=== PATIENT | female | born 1965 | race Caucasian/White ===

== ENCOUNTER 2020-07-23 11:43 | Outpatient (CLI) | payer BC, SELFPAY ==
--- NOTE | ~2020-07-23 | MM_ITS ---
EXAMINATION: MM screening [facility] BI w nilson HISTORY: Screening mammogram TECHNIQUE: Craniocaudal and mediolateral oblique 3-D tomosynthesis images were obtained and synthetic 2-D images were generated. CAD analysis was submitted and interpreted. COMPARISON: 12/13/2018, 10/20/2017, 09/09/2016 BREAST PARENCHYMAL COMPOSITION: There are scattered areas of fibroglandular density. FINDINGS: There is no evidence of suspicious mass, calcification, or architectural distortion to sugg est malignancy in either breast. There has been no suspicious interval change. IMPRESSION: 1. No mammographic evidence of malignancy. 2. Recommend routine screening mammography in one year. BI-RADS Category 1: Negative Reviewed, dictated and finalized at location A. T [employer]
== END 2020-07-23 11:44 | disposition home or self-care (01) ==
PROVIDERS: PCP Nurse Practitioner Adult Health; Visit Provider Obstetrics & Gynecology
DX: Z12.31 Encounter for screening mammogram for malignant neoplasm of breast (principal)
CPT/HCPCS: 77063; 77067

== ENCOUNTER 2020-12-15 09:06 | Outpatient (CLI) | payer BC, SELFPAY ==
--- NOTE | ~2020-12-15 | MR_ITS ---
EXAMINATION: MR shoulder LT wo con DATE: 12/15/2020 10:06 INDICATION: Left shoulder sprain. Initial encounter. TECHNIQUE: Magnetic resonance imaging (MRI) of the left shoulder was performed without intravenous co ntrast. Sequences included axial PD-weighted FS FSE, coronal oblique PD-weighted FS FSE and T2-weight ed FS FSE, and sagittal oblique T2-weighted FS FSE and T1-weighted FSE. COMPARISON: Left shoulder radiographs 11/06/2020 FINDINGS: Coracoacromial arch: The acromion undersurface is curved in morphology (type II). There is severe acromioclavicular joint osteoarthritis including inferiorly directed osteophytes. There is mild subacromial/subdeltoid bursit is. Rotator cuff: There is mild supraspinatus and infraspinatus tendinopathy. No tear. Teres minor tendon is normal. Morgan bscapularis tendon is normal. There is no asymmetric fatty atrophy of the rotator cuff muscle bellies . Biceps tendon and glenoid labrum: The biceps tendon is in bicipital groove. Intra-articular biceps tendon is normal. The superior labru m is normal. Fluid: There is a small glenohumeral joint effusion. Bones/cartilage: There is cartilage surface irregularity of glenoid. Humeral head cartilage is normal. IMPRESSION: 1. Mild rotator cuff tendinopathy. No tear. 2. Mild glenoid chondrosis. 3. Severe acromioclavicular joint osteoarthritis. 4. Mild subacromial/subdeltoid bursitis. 5. Small glenohumeral joint effusion. Reviewed, dictated and finalized at location A.
== END 2020-12-15 09:07 | disposition home or self-care (01) ==
LOC: ANHIMG 09:08
PROVIDERS: PCP Nurse Practitioner Adult Health; Visit Provider Orthopaedic Surgery
DX: S43.402A Unspecified sprain of left shoulder joint, initial encounter (principal); M19.012 Primary osteoarthritis, left shoulder; M75.52 Bursitis of left shoulder
CPT/HCPCS: 73221

== ENCOUNTER 2021-08-17 23:41 | Emergency (ER) | payer BC, SELFPAY ==
[2021-08-17 23:44] VITALS: BP 140/73; PULSE 99; RESP 18; TEMP 35.9; O2SAT 100
--- NOTE | 2021-08-18 00:59 | PC.NURSE ---
Pt to desk with family saying she wants to leave. Pt encouraged to return to the ED if her symptoms continue or get worse.
== END 2021-08-18 02:09 | disposition left against medical advice (07) ==
LOC: ANHED 08-18 01:06
PROVIDERS: PCP Nurse Practitioner Adult Health
DX: R42 Dizziness and giddiness (principal)
CPT/HCPCS: 99199

== ENCOUNTER 2021-10-06 15:47 | Outpatient (CLI) | payer BC, SELFPAY ==
--- NOTE | ~2021-10-06 | MM_ITS ---
EXAMINATION: MM screening [facility] BI w nilson HISTORY: Screening mammogram TECHNIQUE: Craniocaudal and mediolateral oblique 3-D tomosynthesis images were obtained and synthetic 2-D images were generated. CAD analysis was submitted and interpreted. COMPARISON: 07/23/2020, 12/13/2018, 10/20/2017 BREAST PARENCHYMAL COMPOSITION: There are scattered areas of fibroglandular density. FINDINGS: There is no evidence of suspicious mass, calcification, or architectural distortion to sugg est malignancy in either breast. There has been no suspicious interval change. IMPRESSION: 1. No mammographic evidence of malignancy. 2. Recommend routine screening mammography in one year. BI-RADS Category 1: Negative Reviewed, dictated and finalized at location A. D HOOKER
== END 2021-10-06 15:48 | disposition home or self-care (01) ==
LOC: ANHIMG 15:51
PROVIDERS: PCP Nurse Practitioner Adult Health; Visit Provider Obstetrics & Gynecology
DX: Z12.31 Encounter for screening mammogram for malignant neoplasm of breast (principal)
CPT/HCPCS: 77063; 77067

== ENCOUNTER 2022-05-04 09:36 | Outpatient (CLI) | payer BC, SELFPAY ==
--- NOTE | 2022-05-04 11:00 | NEURO_ITS ---
Original report below was signed by Dr. Ksenia Louie on May 04, 2022 at 15:08 and has been recreated for an addendum on May 05, 2022. Impression: # This is an abnormal study due to the presence of mild right Carpal Tunnel Syndrome. # Needle/EMG exam was normal. # Clinical correlation recommended. Nerve Conduction Studies Anti Sensory Summary Table Stim Site NR Peak (ms) P-T Amp (?V) Site1 Site2 Delta-P (ms) Dist (cm) Bright (m/s) Right Median Anti Sensory (2-3nd Digit) Wrist 3.9 79.1 Wrist 2-3nd Digit 3.9 14.0 36 Wrist 4.1 49.4 Wrist 2-3nd Digit 3.9 14.0 36 Right Radial Anti Sensory (Base 1st Digit) Wrist 2.3 59.5 Wrist Base 1st Digit 2.3 0.0 Right Ulnar Anti Sensory (5th Digit) Wrist 3.1 47.0 Wrist 5th Digit 3.1 14.0 45 Motor Summary Table Stim Site NR Onset (ms) O-P Amp (mV) Site1 Site2 Delta-0 (ms) Dist (cm) Bright (m/s) Right Median Motor (Abd Poll Brev) Wrist 3.4 4.4 Elbow Wrist 4.0 23.0 58 Elbow 7.4 4.0 Right Ulnar Motor (Abd Dig Minimi) Wrist 2.3 8.0 A Elbow Wrist 5.7 29.0 51 A Elbow 8.0 6.4 B Elbow Wrist 3.3 21.0 64 B Elbow 5.6 6.7 F Wave Studies NR F-Lat (ms) L-R F-Lat (ms) Right Median (Mrkrs) (Abd Poll Brev) 29.28 Right Ulnar (Mrkrs) (Abd Dig Min) 30.12 EMG Side Muscle Nerve Root Ins Act Fibs Amp Dur Recrt Comment Right 1stDorInt Ulnar C8-T1 Nml Nml Nml Nml Nml Right Ext Indicis Radial (Post Int) C7-8 Nml Nml Nml Nml Nml Right Ext Digitorum Radial (Post Int) C7-8 Nml Nml Nml Nml Nml Right BrachioRad Radial C5-6 Nml Nml Nml Nml Nml Right PronatorTeres Median C6-7 Nml Nml Nml Nml Nml Right Abd Poll Brev Median C8-T1 Nml Nml Nml Nml Nml This dictation may have been done utilizing a voice recognition system. Attempts have been made to correct errors. However, there may be uncorrected grammatical, spelling, and recognition errors present. Dictated By: Ksenia Louie MD 05/04/22 1100 Transcribed Date/Time: 05/04/22 1137 Signed By: Ksenia Louie MD 05/04/22 1508 [facility]
--- NOTE | 2022-05-04 11:00 | NEURO_ITS ---
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 # Needle/EMG exam was normal. # Clinical correlation recommended. Nerve Conduction Studies Anti Sensory Summary Table Stim Site NR Peak (ms) P-T Amp (?V) Site1 Site2 Delta-P (ms) Dist (cm) Bright (m/s) Right Median Anti Sensory (2-3nd Digit) Wrist 3.9 79.1 Wrist 2-3nd Digit 3.9 14.0 36 Wrist 4.1 49.4 Wrist 2-3nd Digit 3.9 14.0 36 Right Radial Anti Sensory (Base 1st Digit) Wrist 2.3 59.5 Wrist Base 1st Digit 2.3 0.0 Right Ulnar Anti Sensory (5th Digit) Wrist 3.1 47.0 Wrist 5th Digit 3.1 14.0 45 Motor Summary Table Stim Site NR Onset (ms) O-P Amp (mV) Site1 Site2 Delta-0 (ms) Dist (cm) Bright (m/s) Right Median Motor (Abd Poll Brev) Wrist 3.4 4.4 Elbow Wrist 4.0 23.0 58 Elbow 7.4 4.0 Right Ulnar Motor (Abd Dig Minimi) Wrist 2.3 8.0 A Elbow Wrist 5.7 29.0 51 A Elbow 8.0 6.4 B Elbow Wrist 3.3 21.0 64 B Elbow 5.6 6.7 F Wave Studies NR F-Lat (ms) L-R F-Lat (ms) Right Median (Mrkrs) (Abd Poll Brev) 29.28 Right Ulnar (Mrkrs) (Abd Dig Min) 30.12 EMG Side Muscle Nerve Root Ins Act Fibs Amp Dur Recrt Comment Right 1stDorInt Ulnar C8-T1 Nml Nml Nml Nml Nml Right Ext Indicis Radial (Post Int) C7-8 Nml Nml Nml Nml Nml Right Ext Digitorum Radial (Post Int) C7-8 Nml Nml Nml Nml Nml Right BrachioRad Radial C5-6 Nml Nml Nml Nml Nml Right PronatorTeres Median C6-7 Nml Nml Nml Nml Nml Right Abd Poll Brev Median C8-T1 Nml Nml Nml Nml Nml MTDD
== END 2022-05-04 09:37 | disposition home or self-care (01) ==
LOC: ANHNEURO 09:38
PROVIDERS: PCP Nurse Practitioner Adult Health; Visit Provider Orthopaedic Surgery
DX: G56.21 Lesion of ulnar nerve, right upper limb (principal); G56.01 Carpal tunnel syndrome, right upper limb
CPT/HCPCS: 95886; 95909

== ENCOUNTER 2022-12-08 14:19 | Outpatient (CLI) | payer BC, SELFPAY ==
--- NOTE | ~2022-12-08 | MM_ITS ---
EXAMINATION: MM screening [facility] BI w nilson HISTORY: Screening mammogram TECHNIQUE: Craniocaudal and mediolateral oblique 3-D tomosynthesis images were obtained and synthetic 2-D images were generated. CAD analysis was submitted and interpreted. COMPARISON: October 06, 2021, July 23, 2020, December 13, 2018 bilateral screening mammogram examina tions BREAST PARENCHYMAL COMPOSITION: There are scattered areas of fibroglandular density. FINDINGS: There is no evidence of suspicious mass, calcification, or architectural distortion to sugg est malignancy in either breast. There has been no suspicious interval change. IMPRESSION: 1. No mammographic evidence of malignancy. 2. Recommend routine screening mammography in one year. BI-RADS Category 1: Negative Reviewed, dictated and finalized at location A.
== END 2022-12-08 14:20 | disposition home or self-care (01) ==
LOC: ANHIMG 14:20
PROVIDERS: PCP Nurse Practitioner Adult Health; Visit Provider Obstetrics & Gynecology
DX: Z12.31 Encounter for screening mammogram for malignant neoplasm of breast (principal)
CPT/HCPCS: 77063; 77067

== ENCOUNTER 2023-01-25 11:44 | Outpatient (CLI) | payer BC, SELFPAY ==
[2023-01-30 12:58] LABS: Testosterone Free 1.3 pg/mL (0.1-6.4); Testosterone Total 9 ng/dL (2-45)
[2023-02-06 00:06] LABS: Estradiol, Ultrasensitive 11 pg/mL
== END 2023-01-25 11:45 | disposition home or self-care (01) ==
LOC: ANHLAB 11:46
PROVIDERS: PCP Nurse Practitioner Adult Health; Visit Provider Obstetrics & Gynecology
DX: N95.1 Menopausal and female climacteric states (principal)
CPT/HCPCS: 36415; 82670; 84402; 84403

== ENCOUNTER 2023-03-17 13:15 | Outpatient (CLI) | payer BC, SELFPAY ==
[2023-03-21 12:41] LABS: Testosterone Free 5.7 pg/mL (0.1-6.4); Testosterone Total 18 ng/dL (2-45)
[2023-03-25 06:41] LABS: Estradiol, Ultrasensitive 30 pg/mL
== END 2023-03-17 13:16 | disposition home or self-care (01) ==
LOC: ANHLAB 13:16
PROVIDERS: PCP Obstetrics & Gynecology; Visit Provider Obstetrics & Gynecology
DX: N95.1 Menopausal and female climacteric states (principal)
CPT/HCPCS: 36415; 82670; 84402; 84403

== ENCOUNTER 2023-11-28 08:00 | Outpatient (CLI) | payer BC, SELFPAY ==
--- NOTE | ~2023-11-28 | US_ITS ---
EXAMINATION: US aorta DATE: 11/28/2023 09:41 CDT INDICATION: Postural dizziness TECHNIQUE: Grayscale, color Doppler, and pulsed Doppler images of the aorta and common iliac arteries were obtained. COMPARISON: None. FINDINGS: The proximal aorta measures 2.2 cm greatest sagittal dimension. The mid aorta measures 1.8 cm greates t sagittal dimension. The distal aorta measures 1.8 cm greatest sagittal dimension. The right common internal iliac artery measures 1.1 cm. The left common iliac artery measures 1.1 cm. IMPRESSION: 1. Normal caliber ultrasound without aneurysm. Reviewed, dictated and finalized at location B.
== END 2023-11-28 08:01 | disposition home or self-care (01) ==
PROVIDERS: PCP Registered Nurse; Visit Provider Registered Nurse
DX: R42 Dizziness and giddiness (principal); R55 Syncope and collapse
CPT/HCPCS: 76775

== ENCOUNTER 2024-01-25 14:42 | Outpatient (CLI) | payer BC, SELFPAY ==
--- NOTE | ~2024-01-25 | MM_ITS ---
EXAMINATION: MM screening [facility] BI w nilson HISTORY: Screening TECHNIQUE: Craniocaudal and mediolateral oblique 3-D tomosynthesis images were obtained and synthetic 2-D images were generated. CAD analysis was submitted and interpreted. COMPARISON: Comparison to multiple prior studies sequentially, with oldest reviewed study dated 01/2017. BREAST PARENCHYMAL COMPOSITION: There are scattered areas of fibroglandular density. FINDINGS: There is no evidence of suspicious mass, calcification, or architectural distortion to sugg est malignancy in either breast. There has been no suspicious interval change. IMPRESSION: 1. No mammographic evidence of malignancy. 2. Recommend routine screening mammography in one year. BI-RADS Category 1: Negative Reviewed, dictated and finalized at location A.
== END 2024-01-25 14:43 | disposition home or self-care (01) ==
LOC: ANHIMG 14:45
PROVIDERS: PCP Registered Nurse; Visit Provider Obstetrics & Gynecology
DX: Z12.31 Encounter for screening mammogram for malignant neoplasm of breast (principal)
CPT/HCPCS: 77063; 77067

== ENCOUNTER 2025-02-19 09:34 | Outpatient (CLI) | payer BC, SELFPAY ==
--- NOTE | ~2025-02-19 | MM_ITS ---
EXAMINATION: MM screening shanel BI w nilson HISTORY: Screening TECHNIQUE: Craniocaudal and mediolateral oblique 3-D tomosynthesis images were obtained and synthetic 2-D images were generated. CAD analysis was submitted and interpreted. COMPARISON: Comparison to multiple prior studies sequentially, with oldest reviewed study dated 10/20. BREAST PARENCHYMAL COMPOSITION: Not dense: There are scattered areas of fibroglandular density. FINDINGS: There is no evidence of suspicious mass, calcification, or architectural distortion to sugg est malignancy in either breast. There has been no suspicious interval change. IMPRESSION: 1. No mammographic evidence of malignancy. 2. Recommend routine screening mammography in one year. BI-RADS Category 1: Negative Reviewed, dictated and finalized at location A.
--- OUTSIDE RECORDS SUMMARY | 2025-02-19 10:32 | XMS_ITS | Clinical Summary ---
Author Organization [facility] Address [address] [place] [phone] Phone Care Team Providers Care Front Services Agent Name Role Phone Serenity Melton TELEHEALTH CASE MANAGER Primary Care Provider + Allergies Active Allergy Reactions Criticality Noted Date Comments Fentanyl Nausea and Vomiting Low 07/22/2022 Metoclopramide Swelling High 10/11/2012 Airway swelling Medications rizatriptan (MAXALT) 10 mg TabletIndication s:Migraine without aura and without status migrainosus, not intractable SEE NOTES 9 Tablet 4 9 Active ondansetron (ZOFRAN) 4 mg Tablet TAKE 1 TABLET(4 MG) BY MOUTH EVERY 8 HOURS NEEDED FOR NAUSEA OR VOMITING 25 Tablet 1 1 Active indomethacin (INDOCIN) 25 mg capsuleIndicatio ns:Migraine without aura and without status migrainosus, not intractable 1 TID prn migraine, with food 25 Capsule 3 2 Active Aimovig Autoinjector 140 mg/mL Auto-InjectorInd ications:Chronic migraine without aura without status migrainosus, not intractable INJECT 1 ML (140 MG) UNDER THE SKIN EVERY 30 DAYS 3 mL 3 3 Active Magnesium Glycinate 100 mg Tablet Take by mouth. Activ e progesterone micronized (PROMETRIUM) 100 mg Capsule TAKE 1 CAPSULE BY MOUTH EVERY MORNING 3 Active est estrogens-methyl TESTOSTERone (ESTRATEST H.S.) 0.625-1.25 mg tablet Take 1 Tablet by mouth daily. 3 Active estradioL (ESTRACE) 0.01% (0.1 mg/g) vaginal cream 3 Active citalopram (CeleXA) 20 mg tabletIndication s:Migraine without aura and without status migrainosus, not intractable TAKE 1 TABLET DAILY AT BEDTIME 90 Tablet 3 3 Active tiZANidine (ZANAFLEX) 4 mg TabletIndication s:Migraine without aura and without status migrainosus, not intractable TAKE 1 TABLET DAILY AT BEDTIME 90 Tablet 3 3 Active Nurtec ODT 75 mg Tablet, Rapid DissolveIndicati ons:Migraine without aura and without status migrainosus, not intractable TAKE 1 TABLET BY MOUTH AT ONSET OF MIGRAINE HEADACHE. MAX OF 1 TABLET PER 24 HOURS. ( PLACE ON OR UNDER THE TONGUE) 8 Tablet 11 4 Active desonide (DESOWEN) 0.05 % Ointment 1 Application. 4 Active PreviDent 5000 Sensitive 1.1-5 % Paste APPLY THIN RIBBON TO TOOTHBRUSH AND BRUSH THOROUGHLY ONCE DAILY FOR 2 MINUTES PREFERABLY AT BEDTIME 4 Active ubrogepant (Ubrelvy) 100 mg tablet TAKE 1 TABLET BY MOUTH AT ONSET OF HEADACHE. MAY REPEAT IN 2 HOURS. NOT TO EXCEED 2 DOSES IN 24 HOURS 4 Active sodium chloride 0.9% Parenteral Solution 100 mL with eptinezumab-jjmr 100 mg/mL Solution Inject 300 mg by intravenous injection every 90 days. Active eptinezumab-jjmr (VYEPTI IV) Inject by intravenous injection. Every three months for migraines Active Active Problems Problem Noted Date Diagnosed Date Depression with anxiety 07/21/2016 Chronic migraine without aur a without status migrainosus, not intractable 08/13/2014 Migraine with aura, without mention of intractable migraine without mention of status migrainosus 08/13/2014 Rebound headache 08/13/2014 A/P, no sling 2.12 10/17/2012 Encounters Date Type Department Care Team Description 02/05/2025 External Device Data ST[facility] ABSTRACTION Provider, Abstract 02/01/2025 3:45 PM CDT - 02/01/2025 5:[address] [facility] Emergency Department [address] [place] [id number] Kavita Acevedo, Encounter for blood typing (Primary Dx); Cannabis intoxication with complication Discharge Disposition: Home or Self Care 02/01/2025 Travel 01/08/2025 External Device Data STL ABSTRACTION Provider, Abstract from Last 3 Months Immunizations Immunization Administration Dates Next Due Influenza Seasonal Unspecified Formulation IM Family History Medical History Relation Name Comments Migraines Father Relation Name Status Comments Father Mother Alive Social History Tobacco Use Types Packs/Day Years Used Date Smoking Tobacco: Never Smokeless Tobacco: Never Alcohol Use Standard Drinks/Week Comments Not Currently 0 (1 standard drink = 0.6 oz pur e alcohol) Feeling Safe Answer Date Recorded Are you in a relationship wi th someone who hurts you emotionally and/or physically? 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 Gender Identity Not on file Sexual Orientation Not on file Occupation Industry Job Start Date Job End Date Not on file Not on file Not on file Not on file Last Filed Vital Signs Vital Sign Reading Time Taken Comments Blood Pressure 139/69 02/01/2025 4:36 PM CDT Pulse 105 02/01/2025 4:36 PM CDT Temperature 36.6 C (97.9 F) 02/01/2025 4:21 PM CDT Respiratory Rate 17 02/01/2025 4:36 PM CDT Oxygen Saturation 96% 02/01/2025 4:36 PM CDT Inhaled Oxygen Concentration - - Weight 72.6 kg (160 lb) 04/04/2024 11:37 AM CDT Height 175.3 cm (5' 9) 04/04/2024 11:37 AM CDT Body Mass Index 23.63 04/04/2024 11:37 AM CDT Plan of Treatment Health Maintenance Due Date Last Done Comments HEPATITIS B VACCINES (1 of 3 - 19+ 3-dose series) 1985 HPV/Cotest (21-29) 1987 CERVICAL CANCER SCREENING 1996 HPV/Cotest (30-65) 1996 PAP SMEAR 1996 BREAST CANCER SCREENING 2006 COLORECTAL SCREENING 2011 Colorectal Cancer Screening 2011 FIT-DNA Q 3 years 2011 FIT/FOBT Q 1 year 2011 Flex Sig/CT Colonography Q 5 years 2011 ZOSTER VACCINE (1 of 2) 2016 INFLUENZA VACCINE (#1) 2024 3, 07/01/2022, 06/04/2016 COVID-19 Vaccine ( season) 2024 07/09/2021, 12/14/2020, 11/18/2020 DTAP/TDAP/TD VACCINES (2 - T d or Tdap) 06/10/2033 06/10/2023 Medical Devices Implanted Type Area Administrative Asst Device Identifier Shelf Expiration Date Model / Serial / Lot Screw Quickfix Ti 2.5x10mm [id number]-[id number] - [id number] Implanted:Qty: 1 on 11/21/2019 by Lori Umaña DPM at [facility] Brass Monkey Screw Left: Foot [employer] AR-[id number] / / Description:LOAD [id number] Loop Recorder Description:gets downloaded at bedside each night - [email or web address] 07/29/17 Explanted Type Area Administrative Asst Device Identifier Shelf Expiration Date Model / Serial / Lot Wire Guide W/Laser Line 0.86mm [id number]-[id number] - [id number] Explanted:Qty: 1 on 11/21/2019 [facility] Wire Left: Foot [employer] [id number] / / Description:LOAD [id number] THIS ITEM IS CHARGED IN THE SUPPLY LIST Procedures Procedure Name Priority Date/Time Associated Diagnosis Comments MRI BRAIN HYPERACUTE FOR STROKE Stat 02/01/2025 5:06 PM CDT EKG 12-LEAD Stat 02/01/2025 4:[address] CEREBRAL PERFUSION STDY W CONT Stat 02/01/2025 4:16 PM CDT CTA HEAD AND NECK W AND/OR WO CONTRAST Stat 02/01/2025 4:[address] HEAD WO CONTRAST STROKE PROTOCOL Stat 02/01/2025 3:59 PM CDT TYPE AND SCREEN Stat 02/01/2025 3:58 PM CDT COMPREHENSIVE METABOLIC PANEL Stat 02/01/2025 3:58 PM CDT PROTIME-INR Stat 02/01/2025 3:58 PM CDT CBC WITH DIFFERENTIAL Stat 02/01/2025 3:58 PM CDT TROPONIN BASELINE, 5TH GEN Stat 02/01/2025 3:58 PM CDT POC GLUCOSE Stat 02/01/2025 3:46 PM CDT CRITICAL CARE Routine 02/01/2025 3:44 PM CDT from Last 3 Months Results * MRI BRAIN HYPERACUTE FOR STROKE (02/01/2025 5:06 PM CDT) Anatomical Region Laterality Modality Head Magnetic Resonan ce 02/01/2025 5:06 PM CDT Impressions 02/01/2025 5:10 PM CDT IMPRESSION: No acute intracranial abnormality. DICTATION LOCATION: Location [address] [place] [address] 02/01/2025 5:10 PM CDT EXAMINATION: MRI BRAIN HYPERACUTE FOR STROKE DATE: 02/01/2025 5:07 PM HISTORY: Neuro deficit. Weakness, slurred speech, dizziness.. TECHNIQUE: Abbreviated multi-weighted MRI of the brain and brainstem was performed without intravenous contrast according to the hyperacute stroke protocol. COMPARISON: 01/01/2019 FINDINGS: Diffusion weighted images reveal no hyperintensities to suggest acute cerebral infarction. Few scattered nonspecific FLAIR hyperintensities are seen. Stable cystic lesion in the left temporal lobe. No focus of abnormal susceptibility is seen to suggest acute or chronic hemorrhage.. The ventricles are normal in size and position without evidence of hydrocephalus. Procedure Note Yamel Bill MD - 02/01/2025 EXAMINATION: MRI BRAIN HYPERACUTE FOR STROKE DATE: 02/01/2025 5:07 PM HISTORY: Neuro deficit. Weakness, slurred speech, dizziness.. TECHNIQUE: Abbreviated multi-weighted MRI of the brain and brainstem was performed without intravenous contrast according to the hyperacute stroke protocol. COMPARISON: 01/01/2019 FINDINGS: Diffusion weighted images reveal no hyperintensities to suggest acute cerebral infarction. Few scattered nonspecific FLAIR hyperintensities are seen. Stable cystic lesion in the left temporal lobe. No focus of abnormal susceptibility is seen to suggest acute or chronic hemorrhage.. The ventricles are normal in size and position without evidence of hydrocephalus. IMPRESSION: No acute intracranial abnormality. DICTATION LOCATION: Location [address] [place] [address] us Terry Restrepo MD MR ORDERABLES Final Result * EKG 12-LEAD (02/01/2025 4:38 PM CDT) 02/01/2025 4:38 PM CDT Narrative INTERFACE SYSTEM - 02/01/2025 5:06 [place] [address] Test Date: 2025-02-01 Pat Name: AYESHA LE Department: 90 Room: [address] [place] [address] Gender: Female Laundry Folder: leslie PATELB: 1965 Requested By: KAVITA Valentine Order Number: [id number] Melo MD: London Pastor Measurements Intervals [place] Rate: 105 P: 75 CT: 174 QRS: 84 QRSD: 96 T: 70 QT: 366 QTc: 483 Interpretive Statements Sinus tachycardia Possible Left atrial enlargement Incomplete right bundle branch block Borderline ECG No previous ECG available for comparison Electronically Signed On 02-01-2025 17:06:37 CDT by London Pastor Procedure Note London Pastor MD - 02/01/2025 [place] [address] Test Date: 2025-02-01 Pat Name: AYESHA LE Department: 90 Room: [address] [place] [address] Gender: Female Laundry Folder: leslie : 1965 Requested By: KAVITA Valentine Order Number: [id number] Reading MD: London Pastor Measurements Intervals [place] Rate: 105 P: 75 CT: 174 QRS: 84 QRSD: 96 T: 70 QT: 366 QTc: 483 Interpretive Statements Sinus tachycardia Possible Left atrial enlargement Incomplete right bundle branch block Borderline ECG No previous ECG available for comparison Electronically Signed On 02-01-2025 17:06:37 CDT by London Pastor us Kavita Acevedo DO ECG ORDERABLES Final Result INTERFACE SYSTEM Refer to clinic/hospital department * CT CEREBRAL PERFUSION STDY W CONT (02/01/2025 4:16 PM CDT) Anatomical Region Laterality Modality Head Computed Tomogra phy 02/01/2025 4:16 PM CDT Impressions 02/01/2025 4:18 PM CDT IMPRESSION: Normal CT perfusion of the brain. DICTATION LOCATION: Location [address] [place] [address] 02/01/2025 4:[address] PERFUSION OF THE BRAIN DATE: 02/01/2025 4:16 PM HISTORY: Neuro deficit, acute, stroke suspected. COMPARISON: No prior studies are available for comparison. TECHNIQUE: After the administration of 40 ml of Isovue 370, CT perfusion imaging of the brain was performed per protocol. Time to peak, mean transit time, blood flow and blood volume images were obtained with post processing on an independent workstation with RAPID post processing. The examination was performed with the adjustment of mA according to the patient size and/or the use of Iterative Reconstruction Technique. FINDINGS: The time to peak, mean transit time, blood flow and blood volume images demonstrate symmetry. There is no perfusion defect. INCIDENTAL FINDINGS: None. Procedure Note Dean Romero MD - 02/01/2025 CT PERFUSION OF THE BRAIN DATE: 02/01/2025 4:16 PM HISTORY: Neuro deficit, acute, stroke suspected. COMPARISON: No prior studies are available for comparison. TECHNIQUE: After the administration of 40 ml of Isovue 370, CT perfusion imaging of the brain was performed per protocol. Time to peak, mean transit time, blood flow and blood volume images were obtained with post processing on an independent workstation with RAPID post processing. The examination was performed with the adjustment of mA according to the patient size and/or the use of Iterative Reconstruction Technique. FINDINGS: The time to peak, mean transit time, blood flow and blood volume images demonstrate symmetry. There is no perfusion defect. INCIDENTAL FINDINGS: None. IMPRESSION: Normal CT perfusion of the brain. DICTATION LOCATION: [address] Terry Restrepo MD CT ORDERABLES Final Result * CTA HEAD AND NECK W AND/OR WO CONTRAST (02/01/2025 4:07 PM CDT) Anatomical Region Laterality Modality Head Computed Tomogra phy 02/01/2025 4:07 PM CDT Impressions 02/01/2025 4:14 PM CDT IMPRESSION: No intracranial large vessel occlusion or cervical ICA stenosis DICTATION LOCATION: [address] Narrative 02/01/2025 4:[address] ANGIOGRAM OF THE HEAD AND NECK WITH IV CONTRAST DATE: 02/01/2025 4:07 PM HISTORY: Neuro deficit, acute, stroke suspected. COMPARISON: Prior noncontrast CT head. TECHNIQUE: Multiple contiguous axial images are taken through the head and neck after the administration of 90 ml of Isovue 370. Post processing coronal, sagittal and MIP images were obtained on an independent workstation. RAPID LVO detection software was utilized. The examination was performed with the adjustment of mA according to the patient size and/or the use of Iterative Reconstruction Technique. FINDINGS: The origins of the great vessels appear patent. The bilateral common carotid arteries are normal in contour and caliber. The bilateral internal carotid arteries are normal in contour and caliber throughout their cervical and intracranial courses.. The bilateral middle cerebral arteries are normal in contour and caliber. No filling defects identified. The bilateral anterior cerebral arteries are normal in contour and caliber. Both vertebral arteries are patent throughout their cervical course. The right vertebral artery is dominant. Left vertebral artery terminates as PICA. The basilar artery is normal in contour and caliber. The posterior fossa circulation is unremarkable. The bilateral posterior cerebral arteries are normal in contour and caliber. No posterior communicating arteries are identified. INCIDENTAL FINDINGS: None. Procedure Note Dean Romero MD - 02/01/2025 CT ANGIOGRAM OF THE HEAD AND NECK WITH IV CONTRAST DATE: 02/01/2025 4:07 PM HISTORY: Neuro deficit, acute, stroke suspected. COMPARISON: Prior noncontrast CT head. TECHNIQUE: Multiple contiguous axial images are taken through the head and neck after the administration of 90 ml of Isovue 370. Post processing coronal, sagittal and MIP images were obtained on an independent workstation. RAPID LVO detection software was utilized. The examination was performed with the adjustment of mA according to the patient size and/or the use of Iterative Reconstruction Technique. FINDINGS: The origins of the great vessels appear patent. The bilateral common carotid arteries are normal in contour and caliber. The bilateral internal carotid arteries are normal in contour and caliber throughout their cervical and intracranial courses.. The bilateral middle cerebral arteries are normal in contour and caliber. No filling defects identified. The bilateral anterior cerebral arteries are normal in contour and caliber. Both vertebral arteries are patent throughout their cervical course. The right vertebral artery is dominant. Left vertebral artery terminates as PICA. The basilar artery is normal in contour and caliber. The posterior fossa circulation is unremarkable. The bilateral posterior cerebral arteries are normal in contour and caliber. No posterior communicating arteries are identified. INCIDENTAL FINDINGS: None. IMPRESSION: No intracranial large vessel occlusion or cervical ICA stenosis DICTATION LOCATION: [address] Terry Restrepo MD CT ORDERABLES Final Result * CT HEAD WO CONTRAST STROKE PROTOCOL (02/01/2025 3:59 PM CDT) Anatomical Region Laterality Modality Head Computed Tomogra phy 02/01/2025 3:59 PM CDT Impressions 02/01/2025 4:03 PM CDT IMPRESSION: 1. No acute intracranial findings. The above findings were discussed with the stroke nurse by Dr. Triplett on 02/01/2025 at 4:01 PM. DICTATION LOCATION: [address] Narrative 02/01/2025 4:03 PM CDT EXAMINATION: CT HEAD WO CONTRAST STROKE PROTOCOL DATE: 02/01/2025 3:59 PM HISTORY: Neuro deficit, acute, stroke suspected, Stroke; TECHNIQUE: CT of the head was performed without contrast according to standard protocol. The examination was performed with the adjustment of mA according to the patient size and/or the use of Iterative Reconstruction Technique. COMPARISON: CT head dated 1119 FINDINGS: There is no acute intracranial hemorrhage. There is no focal mass effect or midline shift. The ventricles are preserved. The basilar cisterns are patent. Procedure Note Norberto Triplett MD - 02/01/2025 EXAMINATION: CT HEAD WO CONTRAST STROKE PROTOCOL DATE: 02/01/2025 3:59 PM HISTORY: Neuro deficit, acute, stroke suspected, Stroke; TECHNIQUE: CT of the head was performed without contrast according to standard protocol. The examination was performed with the adjustment of mA according to the patient size and/or the use of Iterative Reconstruction Technique. COMPARISON: CT head dated 1120 FINDINGS: There is no acute intracranial hemorrhage. There is no focal mass effect or midline shift. The ventricles are preserved. The basilar cisterns are patent. IMPRESSION: 1. No acute intracranial findings. The above findings were discussed with the stroke nurse by Dr. Triplett on 02/01/2025 at 4:01 PM. DICTATION LOCATION: Location [address] [place] [address] ORDERABLES Final Result * (ABNORMAL) TROPONIN BASELINE, 5TH GEN (02/01/2025 3:58 PM CDT) TROPONIN T, BASELINE 5TH GEN 11(H) <=10 ng/L 02/01/2025 5:02 PM CDT [facility] Blood Venipuncture / Unknown 02/01/2025 3:58 PM CDT 02/01/2025 4:32 PM CDT Narrative [facility] - 02/01/2025 5:02 PM CDT Troponin elevated. Kavita Acevedo DO CHEMISTRY ORDERABLES Final Resu lt [facility] CLIA# [id number] [place], [place] [id number] * (ABNORMAL) CBC WITH DIFFERENTIAL (02/01/2025 3:58 PM CDT) WBC 6.9 4.0 - 9.8 K/uL 02/01/2025 4:36 PM CDT [facility] RBC 3.77(L) 3.90 - 4.90 M/uL 02/01/2025 4:36 PM CDT [facility] HEMOGLOBIN 11.5(L) 11.8 - 14.8 g/dL 02/01/2025 4:36 PM CDT [facility] HEMATOCRIT 35.0(L) 35.5 - 44.0 % 02/01/2025 4:36 PM CDT [facility] MCV 92.8 82.0 - 99.0 fL 02/01/2025 4:36 PM CDT [facility] MCH 30.5 27.2 - 32.6 pg 02/01/2025 4:36 PM CDT [facility] MCHC 32.9 31.5 - 35.5 g/dL 02/01/2025 4:36 PM CDT [facility] RDW 11.9 11.5 - 14.5 % 02/01/2025 4:36 PM CDT [facility] RDW-STDEV 41.1 37.1 - 48.7 fL 02/01/2025 4:36 PM CDT [facility] PLATELETS 348 140 - 350 K/uL 02/01/2025 4:36 PM CDT [facility] MPV 11.1 9.3 - 12.4 fL 02/01/2025 4:36 PM CDT [facility] NEUTROPHILS 52 % 02/01/2025 4:36 PM CDT [facility] LYMPHOCYTES 38 % 02/01/2025 4:36 PM CDT [facility] MONOCYTES 8 % 02/01/2025 4:36 PM CDT [facility] EOSINOPHILS 1 % 02/01/2025 4:36 PM CDT [facility] BASOPHILS 1 % 02/01/2025 4:36 PM CDT [facility] IMMATURE GRANULOCYTES 0 % 02/01/2025 4:36 PM CDT [facility] NEUTROPHIL ABSOLUTE 3.58 1.90 - 7.00 K/uL 02/01/2025 4:36 PM CDT [facility] LYMPHOCYTE ABSOLUTE 2.66 0.70 - 4.50 K/uL 02/01/2025 4:36 PM CDT [facility] MONOCYTE ABSOLUTE 0.58 0.10 - 1.30 K/uL 02/01/2025 4:36 PM CDT [facility] EOSINOPHIL ABSOLUTE 0.05 0.00 - 0.70 K/uL 02/01/2025 4:36 PM CDT [facility] BASOPHILS ABSOLUTE 0.04 0.00 - 0.20 K/uL 02/01/2025 4:36 PM CDT [facility] IMMATURE GRANULOCYTES ABSOLUTE 0.02 0.00 - 0.03 K/uL 02/01/2025 4:36 PM CDT [facility] Blood Venipuncture / Unknown 02/01/2025 3:58 PM CDT 02/01/2025 4:33 PM CDT Kavita Acevedo DO HEMATOLOGY ORDERABLES Final Res ult [facility] CLIA# [id number] [place] [address] * PROTIME-INR (02/01/2025 3:58 PM CDT) PROTIME 13.3 11.5 - 14.7 Seconds 02/01/2025 4:53 PM CDT [facility] INR 1.0 0.9 - 1.1 02/01/2025 4:53 PM CDT [facility] Blood Venipuncture / Unknown 02/01/2025 3:58 PM CDT 02/01/2025 4:32 PM CDT Kavita Acevedo DO HEMATOLOGY ORDERABLES Final Res ult [facility] CLIA# [id number] [place] [address] * TYPE AND SCREEN (02/01/2025 3:58 PM CDT) Pathologist [facility] [place] ABO GROUP A 02/01/2025 6:00 PM CDT [facility] RH (D) TYPE Positive 02/01/2025 6:00 PM CDT [facility] ANTIBODY SCREEN Negative 02/01/2025 6:00 PM CDT [facility] Blood Venipuncture / Unknown 02/01/2025 3:58 PM CDT 02/01/2025 4:28 PM CDT Kavita Acevedo DO BLOOD BANK ORDERABLES Edited Re sult - [id number] [place] [address] * (ABNORMAL) COMPREHENSIVE METABOLIC PANEL (02/01/2025 3:58 PM CDT) Pathologist [facility] [place] SODIUM 136 136 - 145 mmol/L 02/01/2025 5:02 PM CDT [facility] POTASSIUM 3.6 3.4 - 5.1 mmol/L 02/01/2025 5:02 PM CDT [facility] CHLORIDE 101 98 - 107 mmol/L 02/01/2025 5:02 PM CDT [facility] CO2 21(L) 22 - 29 mmol/L 02/01/2025 5:02 PM CDT [facility] CALCIUM 9.4 8.6 - 10.4 mg/dL 02/01/2025 5:02 PM CDT [facility] BUN 19 6 - 20 mg/dL 02/01/2025 5:02 PM CDT [facility] CREATININE 0.75 0.51 - 0.95 mg/dL 02/01/2025 5:02 PM CDT [facility] GLUCOSE 101(H) 74 - 99 mg/dL 02/01/2025 5:02 PM CDT [facility] TOTAL PROTEIN 6.9 6.3 - 8.7 g/dL 02/01/2025 5:02 PM CDT [facility] ALBUMIN 4.1 3.5 - 5.2 g/dL 02/01/2025 5:02 PM CDT [facility] BILIRUBIN TOTAL <0.2 0.0 - 1.2 mg/dL 02/01/2025 5:02 PM CDT [facility] ALKALINE PHOSPHATASE 82 40 - 150 U/L 02/01/2025 5:02 PM CDT [facility] AST 23 0 - 33 U/L 02/01/2025 5:02 PM T [facility] ALT 12 0 - 33 U/L 02/01/2025 5:02 PM T [facility] GFR >60 >=60 mL/min/1.7 3 sq meter 02/01/2025 5:02 PM CDT [facility] Comment:eGFR calculated with 2020 CKD-EPI equation. Vegetarian diet, extremely high or low muscle mass, and may affect results. Cystatin C with Glomerular Filtration Rate is a suitable alternative for these patients. ANION GAP 14 8 - 16 mmol/L 02/01/2025 5:02 PM T [facility] Blood Venipuncture / Unknown 02/01/2025 3:58 PM CDT 02/01/2025 4:32 PM CDT us Kavita Acevedo DO CHEMISTRY ORDERABLES Final Resu lt [facility] CLIA# [id number] [place] [address] * (ABNORMAL) POC GLUCOSE (02/01/2025 3:46 PM CDT) GLUCOSE POC 103(H) 74 - 99 mg/dL 02/01/2025 3:46 PM CDT [facility] POINT OF CARE SPECIMEN SOURCE, GLUCOSE POC Whole Blood 02/01/2025 3:46 PM CDT [facility] POINT OF CARE Blood, whole 02/01/2025 3:46 PM CDT 02/01/2025 3:53 PM CDT Result [facility] Kavita Acevedo DO POINT OF CARE TESTING Final Res ult [facility] POINT OF CARE CLIA # [id number] [place] [address] * Critical Care (02/01/2025 3:44 PM CDT) Narrative Kavita Acevedo DO - 02/01/2025 3:44 PM CDT Kavita Acevedo DO 02/01/2025 10:06 PM Critical Care Performed by: Kavita Acevedo DO Authorized by: Kavita Acevedo DO Critical care provider statement: Critical care time (minutes): 35 Critical care time was exclusive of: Separately billable procedures and treating other patients Critical care was necessary to treat or prevent imminent or life-threatening deterioration of the following conditions: BUSGIRL failure or compromise Critical care was time spent personally by me on the following activities: Blood draw for specimens, development of treatment plan with patient or surrogate, evaluation of patient's response to treatment, examination of patient, obtaining history from patient or surrogate, ordering and performing treatments and interventions, ordering and review of laboratory studies, ordering and review of radiographic studies, pulse oximetry, review of old charts and re-evaluation of patient's condition Kavita Acevedo DO PROCEDURE/MINOR SURGICAL ORDERA BLES Final Result from Last 3 Months Insurance [facility] BLUE ACCESS CHOICE RX [employer] Advance Directives For more information, please contact: [phone] * Full Code (Latest Code Status on File) Date Activated Date Inactivated Comments 11/21/2019 9:21 AM 11/21/2019 12:53 PM * Full Code Date Activated Date Inactivated Comments 11/21/2019 7:41 AM 11/21/2019 9:21 AM * Full Code Date Activated Date Inactivated Comments 11/21/2019 7:31 AM 11/21/2019 7:41 AM * Full Code Date Activated Date Inactivated Comments 07/07/2016 7:48 AM 07/07/2016 1:03 PM * Full Code Date Activated Date Inactivated Comments 10/17/2012 5:31 PM 10/18/2012 2:49 PM Care Teams Front Services Agent Relationship Specialty Start Date End Date Serenity Melton NP [facility] [place] [address] PCP - General NURSE PRACTITIONER 04/16/21
--- OUTSIDE RECORDS SUMMARY | 2025-02-19 10:32 | XMS_ITS | Encounter Summary ---
Author Organization [facility] Address [address] [place] [address] Care Team Providers Care Railroad Crane Operator Name Role Phone Serenity Melton PSYCHIC READER Primary Care Provider + Reason for Visit * Reason Comments Medication Refill Encounter Details Date Type Department Care Team (Late st Contact Info) Description 12/10/2021 Telephone [facility] [place] [facility] [id number] [facility] [address] [place] [phone] Gita Cannon, KAT [address] [facility] [address] [place] [phone] Medication Refill Social History Tobacco Use Types Packs/Day Years Used Date Smoking Tobacco: Never Smokeless Tobacco: Never Alcohol Use Standard Drinks/Week Comments Yes 0 (1 standard drink = 0.6 oz pure alcohol) 4 beers or 3 glasses of wine 1-2 days per week Comments No Sex and Gender Information Value Date Recorded Sex Assigned at Not on file Legal Sex Female 9:40 AM SKIN TOGGLER Gender Identity Not on file Sexual Orientation Not on file Occupation Industry Job Start Date Job End Date Not on file Not on file Not on file Not on file COVID-19 Exposure Response Date Recorded In the last month, have you been in contact with someone who was confirmed or suspected to have Coronavirus / COVID-19? Unable to assess 12/04/2021 9:57 AM CDT documented as of this encounter Miscellaneous Notes * Telephone Encounter - Curtis Bolanos - 12/10/2021 10:48 AM CDT Recent Visits Date Type Provider Dept 12/04/21 Video Visit Gita Cannon NP [facility] Neurology [place] [address] [place] [address] 04/16/21 Video Visit Gita Cannon NP [facility] Neurology [place] [address] Showing recent visits within past 540 days with a meds authorizing provider and meeting all other requirements Future Appointments No visits were found meeting these conditions. Showing future appointments within next 150 days with a meds authorizing provider and meeting all other requirements Last Ordered:: Receipt confirmed by pharmacy (12/04/2021 11:53 AM CDT) no further action is required. documented in this encounter Plan of Treatment Not on file documented as of this encounter Visit Diagnoses Diagnosis Migraine without aura and without status migrainosus, not intractable Migraine without aura, without mention of intractable migraine without mention of status migrainosus documented in this encounter Care Teams Railroad Crane Operator Relationship Specialty Start Date End Date Serenity Melton NP [address] [place] [phone] PCP - General NURSE PRACTITIONER 04/16/21 documented as of this encounter
--- OUTSIDE RECORDS SUMMARY | 2025-02-19 10:32 | XMS_ITS | Patient Health Record ---
Author Organization [facility] [place] ([address]) Address [address] [place] [address] Care Team Providers Care Braker Passenger Train Name Role Phone Serenity Melton Primary Care Provider Rebeca Hadley [phone] Allergies No Known Allergies Reason For Referral No Information Medications Medication SIG (Take, Route, Frequency, Duration) Notes Start Date End Date Status Magnesium Gluconate *Please revi ew and pick correct strength-formulatio n from Medispan options. If intended option is not shown, discontinue and re-order from Quick Search* Active Vyepti 300mg *Please review and pick correct strength-formulatio n from Medispan options. If intended option is not shown, discontinue and re-order from Quick Search* Active Vanicream - 1 sam applied topically 4 times a day 12/06/2023 Active Desonide 0.05 % 1 sam applied topically twice a day for 7 days 12/06/2023 Active VANICREAM - 1 sam applied topically 4 times a day Active Desonide 0.05 % 1 application Externally as needed for 7 days As needed 04/03/2024 Active Ubrelvy *Please review a nd pick correct strength-formulatio n from Medispan options. If intended option is not shown, discontinue and re-order from Quick Search* Active Ondansetron *Please review a nd pick correct strength-formulatio n from Medispan options. If intended option is not shown, discontinue and re-order from Quick Search* Active Citalopram Hydrobromide 20 MG 1 tab(s) orally once a day Active Indomethacin 25 MG 1 cap(s) orally 3 times a day Active Social History Tobacco Use: Social History Observation Description Date Details (start date - stop date) Never Smoker NA - NA Smoking Smart Form: Question Answer Notes Are you a: current smoker Tobacco Control (Standard) Question Answer Notes Tobacco use: Nonsmoker Vital Signs Respiratory Rate 18 /min 04/03/2024 Blood pressure diastolic 52 mm Hg 04/03/2024 Oximetry 98 % 04/03/2024 Height 69 in 04/03/2024 Blood pressure systolic 91 mm Hg 04/03/2024 Weight 159.2 lbs 04/03/2024 BMI 23.51 kg/m2 04/03/2024 Encounters Encounter Location Date Provider Diagnosis [facility] [address] [place] [address] 04/03/2024 Rebeca Odom Rash and other nonspecific skin eruption R21 and Pruritus, unspecified L29.9 [facility] [address] [place] [address] 03/07/2024 Rebeca Odom Assessments Encounter Date Diagnosis (ICD Code) Assessment Notes Treatment Notes Treatment Clinical Notes Section Notes 04/03/2024 Rash and other nonspecific skin eruption (ICD-10 - R21) Ayesha presented to her initial visit with complaints of bilateral periorbital rash that had been ongoing since June 2023. She has been unable to identify clear trigger, but describes rash of dry, erythematous and pruritic. She has seen her PCP, also established care with [facility], who has trialed various topical steroids. She reports the rash improves with topical steroids, however she noticed lingering dryness and redness that is very bothersome. Ayesha returns with symptoms resolved with new skin care regimen and as-needed application of desonide, which she uses sparingly 1-2 times per month. - History, physical exam and photo review is concerning for contact dermatitis vs other. - Will send refill of Desonide ointment 0.05% for Ayesha to have on hand. Discussed strictly limiting use of topical steroids, which she voiced understanding. If she has increased use she is to contact the office. - Continue use of dye-free, scent-free, paraben free. Suggested Vanicream line for all products in addition to All Free and Clear Laundry detergent. - Discussed journaling for triggers if rash recurs, no interval issues. - Consider returning for patch testing if symptoms recur or if Ayesha feels her topical products are too limited. - Consider skin testing to aeroallergens for further assessment, however description of symptoms and photo review are not suggestive of atopic dermatitis. - Follow-up in 6 months for further evaluation and management 04/03/2024 Pruritus, unspecified (ICD-10 - L29.9) See plan above 04/03/2024 Other Plan Of Treatment No Information Insurance Providers Payer Name Payer Address Payer Phone Subscriber Number Group Number Insured Name Patient Relationship to Insured Coverage Start Date Coverage End Date [facility] [address] [place] [address] [id number] Ayesha Le Self - patient is the insured
--- OUTSIDE RECORDS SUMMARY | 2025-02-19 10:32 | XMS_ITS | Clinical Summary ---
Author Organization [facility] Address [address] [place] [phone] Care Team Providers Care Truck Body Builder Apprentice Name Role Phone Serenity Melton Primary Care Provider + Allergies Active Allergy Reactions Criticality Noted Date Comments Fentanyl Nausea & Vomiting Low 07/22/2022 Metoclopramide Anaphylaxis,Swelling High 10/11/2012 Metoclopramide Hcl Unknown 07/10/2011 Medications citalopram (CeleXA) 20 mg tablet take 1 tablet by oral route every day 0 0 6 Active tiZANidine (ZANAFLEX) 2 mg tablet take 2 tablet by oral route every 8 hours as needed not to exceed 3 doses in 24 hours 0 0 6 Active ondansetron (ZOFRAN) 4 mg tablet Take 1 tablet (4 mg total) by mouth daily as needed 3 8 Active AIMOVIG AUTOINJECTOR, 2 PACK, 70 mg/mL auto-injector subcutaneous injection Inject 2 mL (140 mg total) under the skin every 30 (thirty) days 3 8 Active magnesium glycinate 100 mg tablet Take by mouth Active rimegepant (Nurtec ODT) tablet,disintegra ting Take 1 tablet (75 mg total) by mouth as needed 2 Active cholecalciferol (VITAMIN D-3) 2000 unit tablet Take 1 tablet (2,000 Units total) by mouth daily 30 tablet 2 Active ascorbic acid (VITAMIN C) 500 mg tablet,chewable Take 1 tablet/chew tab (500 mg total) by mouth 2 (two) times a day 60 tablet/chew tab 2 Active tramadol-celecoxi b (Seglentis) 44-56 mg tablet Take 2 tablets by mouth every 12 (twelve) hours 28 tablet 2 Active naloxone (NARCAN) 4 mg/actuation spray,non-aerosol 2 Active estrogens-methylT ESTOSTERone (EEMT,COVARYX) 0.625-1.25 mg per tablet Take 1 tablet by mouth daily 3 Active progesterone (PROMETRIUM) 100 mg capsule Take 100 mg by mouth every morning 3 Active Active Problems Problem Noted Date Diagnosed Date Cubital tunnel syndrome on right 07/01/2022 Overview (07/01/2022): Added automatically from request for surgery [id number] Tachycardia-bradycardia 01/03/2017 Overview (01/28/2017): Tachy-arely syndrome Paroxysmal supraventricular tachycardia 01/04/20 Overview (01/28/2017): PSVT (paroxysmal supraventricular tachycardia) Status post placement of implantable loop record er 11/01/2016 Overview (03/18/2018): [employer]tronic Reveal Loop Recorder. Dx; Syncope. DOI 07/26/2016. Carelink remote monitoring. Incomplete right bundle branch block (RBBB) 10/07 Overview (12/10/2016): Incomplete right bundle branch block Sick sinus syndrome 11/01/2016 Overview (12/10/2016): Sick sinus syndrome Abnormal electrocardiography 07/05/2016 Overview (12/10/2016): Abnormal EKG Palpitations 07/05/2016 Overview (12/10/2016): Palpitations Syncope and collapse 07/05/2016 Overview (12/10/2016): Syncope and collapse Depression 07/05/2016 Overview (12/10/2016): Depression, unspecified depression type Preoperative state 07/05/2016 Overview (12/10/2016): Preoperative cardiovascular examination Prolapsed external hemorrhoids 12/20/2011 Encounters Date Type Department Care Team Description 12/10/2024 [facility] [address] [facility] [address] [place] [address] [place] [address] Ruchi Arias MS from Last 3 Months Surgical History Surgery Date Site/Laterality Comments RECTOCELE REPAIR FOOT SURGERY Bilateral bone spur removed from each foot Medical History Medical History Date Comments Hx Other Medical Headache, migra ine Depression Depression Family History Medical History Relation Name Comments Heart attack Father Myocardial infa rction; Other Mother Alive and well; Heart attack Other Family history of Myocardial infarction; Relation Name Status Comments Father Mother Alive Other Social History Tobacco Use Types Packs/Day Years Used Date Smoking Tobacco: Never Smokeless Tobacco: Never Tobacco Cessation:Counseling Given: Not Answered Alcohol Use Standard Drinks/Week Comments Yes 0 (1 standard drink = 0.6 oz pur e alcohol) AUDIT-C Answer Date Recorded Frequency of Alcohol Consumption Not on file 07/22/2022 Q2: How many drinks containi ng alcohol do you have on a typical day when you are drinking? Patient does not drink Frequency of Binge Drinking Not on file 07/06 Comments No Sex and Gender Information Value Date Recorded Sex Assigned at Not on file Legal Sex Female 2:38 AM RADAR TESTER Gender Identity Not on file Sexual Orientation Not on file Obstetrics History Last Filed Vital Signs Vital Sign Reading Time Taken Comments Blood Pressure 110/65 10/22/2022 11:30 AM RADAR TESTER Pulse 79 10/22/2022 11:30 AM RADAR TESTER Temperature 36.2 C (97.1 F) 07/22/2022 2:35 PM RADAR TESTER Respiratory Rate 14 07/22/2022 3:00 PM RADAR TESTER Oxygen Saturation 100% 07/22/2022 3:00 PM RADAR TESTER Inhaled Oxygen Concentration - - Weight 70.3 kg (155 lb) 10/22/2022 11:30 AM RADAR TESTER Height 175.3 cm (5' 9) 10/22/2022 11:30 AM RADAR TESTER Body Mass Index 22.89 10/22/2022 11:30 AM RADAR TESTER Plan of Treatment Health Maintenance Due Date Last Done Comments Breast Cancer Screening-Mammogram 1965 Cervical Cancer Screening 1965 Colon Cancer Screening-Colonoscopy 1965 Depression Screening 1965 Hepatitis C Screening 1966 Hepatitis B Screening 1984 Regular Well Visit/Exam 18-64 1984 Zoster Vaccine (1 of 2) 2016 Covid-19 Vaccine ( season) 2024 07/09/2021, 12/14/2020, 11/18/2020 Influenza Vaccine (Season Ended) 2025 06/10/2023, 07/01/2022, 06/17/2021, Additional history exists DTaP/Tdap/Td Vaccine (3 - Td or Tdap) 06/10/2033 06/10/2023, 08/07/2014 Pneumococcal vaccine <65 Aged Out No longer eligible based on patient's age to complete this topic Insurance [employer] OOS ANTHEM ACCESS CHOICE ANTHEM ACCESS CHOICE Care Teams Truck Body Builder Apprentice Relationship Specialty Start Date End Date Serenity Melton PA [address] [place], [place] [phone] PCP - General Nurse Practitioner 05/28/22
--- OUTSIDE RECORDS SUMMARY | 2025-02-19 10:32 | XMS_ITS | Referral Summary ---
Author Organization [facility] Address [address] [place] [phone] Care Team Providers Care Golf Manager Name Role Phone Serenity Melton Primary Care Provider + Encounters Date Type Department Care Team Description 12/10/2024 [facility] - [facility] [address] [facility] [address] [place] [address] [place] [address] Ruchi Arias MS from Last 3 Months Allergies Active Allergy Reactions Criticality Noted Date [...] (07/01/2022): Added automatically from request for surgery [id number] Tachycardia-bradycardia 01/03/2017 Overview (01/28/2017): Tachy-arely syndrome Paroxysmal supraventricular tachycardia 01/04/20 Overview (01/28/2017): PSVT (paroxysmal supraventricular tachycardia) Status post placement of implantable loop record er 11/01/2016 Overview (03/18/2018): Medtronic Reveal Loop Recorder. Dx; Syncope. DOI 07/26/2016. [...] Preoperative cardiovascular examination Prolapsed external hemorrhoids 12/20/2011 Social History Tobacco Use Types Packs/Day Years [...] on file Legal Sex Female 2:38 AM DAIRY FARM OPERATOR Gender Identity Not on file Sexual Orientation Not on file Last Filed Vital Signs Vital Sign Reading Time Taken Comments Blood Pressure 110/65 10/22/2022 11:30 AM DAIRY FARM OPERATOR Pulse 79 10/22/2022 11:30 AM DAIRY FARM OPERATOR Temperature 36.2 C (97.1 F) 07/22/2022 2:35 PM DAIRY FARM OPERATOR Respiratory Rate 14 07/22/2022 3:00 PM DAIRY FARM OPERATOR Oxygen Saturation 100% 07/22/2022 3:00 PM DAIRY FARM OPERATOR Inhaled Oxygen Concentration - - Weight 70.3 kg (155 lb) 10/22/2022 11:30 AM DAIRY FARM OPERATOR Height 175.3 cm (5' 9) 10/22/2022 11:30 AM DAIRY FARM OPERATOR Body Mass Index 22.89 10/22/2022 11:30 AM DAIRY FARM OPERATOR Plan of Treatment Not on file Insurance BLUE ACC CHOICE OOS ANTHEM ACCESS CHOICE ANTHEM ACCESS CHOICE Care Teams Golf Manager Relationship Specialty Start Date End Date Serenity Melton PA [facility] [place], [place] [phone] PCP - General Nurse Practitioner 05/28/22
--- OUTSIDE RECORDS SUMMARY | 2025-02-19 10:32 | XMS_ITS | Encounter Summary ---
Author Organization [facility] Address [address] [address] Care Team Providers Care Business Development Engineer Name Role Phone Cyndi Sinclair NP Primary Care Provider [phone] Cyndi Sinclair NP Primary Care Provider [phone] Serenity eMlton Primary Care Provider + Encounter Details Date Type Department Care Team (Late st Contact Info) Description 11/15/2016 Orders Only [facility] ProviderRadha MD [address] [place] [id number] Social History Tobacco Use Types Packs/Day Years Used Date Smoking Tobacco: Never Alcohol Use Standard Drinks/Week Comments Yes 0 (1 standard drink = 0.6 oz pur e alcohol) Comments Unknown Sex and Gender Information Value Date Recorded Sex Assigned at Not on file Legal Sex Female 2:38 AM RELEASE MANAGER Gender Identity Not on file Sexual Orientation Not on file documented as of this encounter Plan of Treatment Not on file documented as of this encounter Procedures Procedure Name Priority Date/Time Associated Diagnosis Comments CARDIOLOGY REPORT 11/15/2016 documented in this encounter Results * CARDIOLOGY REPORT (11/15/2016) Anatomical Region Laterality Modality Other Narrative 11/15/2016 Ordered by an unspecified provider. Historical Provider [facility] ORTIZ Final Result documented in this encounter Visit Diagnoses Not on filedocumented in this encounter Care Teams Business Development Engineer Relationship Specialty Start Date End Date Cyndi Sinclair NP PCP - General 12/03/16 05/27/22 Cyndi Sinclair NP PCP - General 07/06/16 12/02/16 Serenity Melton PA [address] [place] [id number] PCP - General Nurse Practitioner 05/28/22 documented as of this encounter
--- OUTSIDE RECORDS SUMMARY | 2025-02-19 10:32 | XMS_ITS ---
Author Organization [facility] [place] ([address]) Address [address] [place] [address] Care Team Providers Care Broom Worker Name Role Phone Serenity Melton Primary Care Provider UnavailRebeca Conner Unavailable [phone] ZZ-Migration, Provider Unavailable Unavailab le REASON FOR VISIT Multum To Medispan Conversion Encounter Medications Medication SIG (Take, Route, Frequency, Duration) Notes Start Date End Date Status Vyepti 300mg *Please review and pick correct strength-formulatio n from Medispan options. If intended option is not shown, discontinue and re-order from Quick Search* Active Citalopram Hydrobromide 20 MG 1 tab(s) orally once a day Active Indomethacin 25 MG 1 cap(s) orally 3 times a day Active Vanicream - 1 sam applied topically 4 times a day 12/06/2023 Active Ubrelvy *Please review a nd pick correct strength-formulatio n from Medispan options. If intended option is not shown, discontinue and re-order from Quick Search* Active Desonide 0.05 % 1 sam applied topically twice a day for 7 days 12/06/2023 Active Ondansetron *Please review a nd pick correct strength-formulatio n from Medispan options. If intended option is not shown, discontinue and re-order from Quick Search* Active Magnesium Gluconate *Please revi ew and pick correct strength-formulatio n from Medispan options. If intended option is not shown, discontinue and re-order from Quick Search* Active Encounters Encounter [facility] Date [facility] [address] [facility]/18/[facility] Provider Srinath Rash and other nonspecific skin eruption R21 Assessments Encounter Date Diagnosis (ICD Code) Assessment Notes Treatment Notes Treatment Clinical Notes Section Notes 02/18/2024 Rash and other nonspecific skin eruption (ICD-10 - R21) Plan Of Treatment Medication Medication Name Sig Start Date Stop Date Notes Vanicream - 1 sam applied topically 4 times a day 12/06/19 24 Desonide 0.05 % 1 sam applied topica lly twice a day for 7 days 12/06/2023 Progress Notes * David ALSTONB:1965 (59 yo F)Acc No.[id number]:02/18/2024 Patient: Ayesha CHAVARRIA Provider: Shayna Quick :1965 A ge:58 Y S ex:Female Date:02/18/2024 Address:[address] [place], [place] [phone] Pcp:Serenity Melton Subjective: * Chief Complaints: * 1 . Multum To Medispan Conversion Encounter. * Medical History: * Medications: T aking Magnesium Gluconate , Notes to Pharmacist: *Please review and pick correct strength-formulation from Medispan options. If intended option is not shown, discontinue and re-order from Quick Search*, Taking Ondansetron , Notes to Pharmacist: *Please review and pick correct strength-formulation from Medispan options. If intended option is not shown, discontinue and re-order from Quick Search*, Taking Ubrelvy , Notes to Pharmacist: *Please review and pick correct strength-formulation from Medispan options. If intended option is not shown, discontinue and re-order from Quick Search*, Taking Indomethacin 25 MG Capsule 1 cap(s) orally 3 times a day , Taking Citalopram Hydrobromide 20 MG Tablet 1 tab(s) orally once a day , Taking Vyepti , Notes to Pharmacist: 300mg *Please review and pick correct strength-formulation from Medispan options. If intended option is not shown, discontinue and re-order from Quick Search* Objective: * Vitals: Assessment: * Assessment: 1. R chloe and other nonspecific skin eruption - R21 (Primary) Plan: * Treatment: * Billing Information: * Visit Code: * Procedure Codes: * Electronic signature of Kaylin LOPEZ-Migration on 02/19/2025 at 10:32 AM CDT Sign off status: Pending * Provider: Shayna ham Migration Date: 02/18/2024 Generated for Mili naqvi/Kiah/Mikhail on: 02/19/2025 10:32 AM CDT
--- OUTSIDE RECORDS SUMMARY | 2025-02-19 10:32 | XMS_ITS | Encounter Summary ---
Author Organization [facility] Address [address] [address] Care Team Providers Care Switchman Supervisor Name Role Phone Cyndi Sinclair NP Primary Care Provider [phone] Serenity Melton Primary Care Provider + Encounter Details Date Type Department Care Team (Late st Contact Info) Description 12/30/2016 Orders Only [facility] ProviderRadha MD [address] [place] [address] Social History Tobacco Use Types Packs/Day Years Used Date Smoking Tobacco: Never Alcohol Use Standard Drinks/Week Comments Yes 0 (1 standard drink = 0.6 oz pur e alcohol) Comments Unknown Sex and Gender Information Value Date Recorded Sex Assigned at Not on file Legal Sex Female 2:38 AM DISTRIBUTION LEAD Gender Identity Not on file Sexual Orientation Not on file documented as of this encounter Plan of Treatment Not on file documented as of this encounter Procedures Procedure Name Priority Date/Time Associated Diagnosis Comments CARDIOLOGY REPORT 12/30/2016 documented in this encounter Results * CARDIOLOGY REPORT (12/30/2016) Anatomical Region Laterality Modality Other Narrative 12/30/2016 Ordered by an unspecified provider. Historical Provider [facility] Final Result documented in this encounter Visit Diagnoses Not on filedocumented in this encounter Care Teams Switchman Supervisor Relationship Specialty Start Date End Date Cyndi Sinclair NP PCP - General 12/03/16 05/27/22 Serenity Melton PA [address] [place] [id number] PCP - General Nurse Practitioner 05/28/22 documented as of this encounter
--- OUTSIDE RECORDS SUMMARY | 2025-02-19 10:32 | XMS_ITS | Encounter Summary ---
Author Organization [facility] Address [address] [address] Care Team Providers Care Performance Analyst Name Role Phone Cyndi Sinclair NP Primary Care Provider [phone] Cyndi Sinclair NP Primary Care Provider [phone] Serenity Melton Primary Care Provider + Encounter Details Date Type Department Care Team (Late st Contact Info) Description 10/11/2016 Orders Only [facility] ProviderRadha MD [address] [place] [address] Social History Tobacco Use Types Packs/Day Years Used Date Smoking Tobacco: Never Alcohol Use Standard Drinks/Week Comments Yes 0 (1 standard drink = 0.6 oz pur e alcohol) Comments Unknown Sex and Gender Information Value Date Recorded Sex Assigned at Not on file Legal Sex Female 2:38 AM CLAM BED WORKER Gender Identity Not on file Sexual Orientation Not on file documented as of this encounter Plan of Treatment Not on file documented as of this encounter Procedures Procedure Name Priority Date/Time Associated Diagnosis Comments CARDIOLOGY REPORT 10/11/2016 documented in this encounter Results * CARDIOLOGY REPORT (10/11/2016) Anatomical Region Laterality Modality Other Narrative 10/11/2016 Ordered by an unspecified provider. Historical Provider [facility] Final Result documented in this encounter Visit Diagnoses Not on filedocumented in this encounter Care Teams Performance Analyst Relationship Specialty Start Date End Date Cyndi Sinclair NP PCP - General 12/03/16 05/27/22 Cyndi Sniclair NP PCP - General 07/06/16 12/02/16 Serenity Melton PA [address] [place] [id number] PCP - General Nurse Practitioner 05/28/22 documented as of this encounter
--- OUTSIDE RECORDS SUMMARY | 2025-02-19 10:32 | XMS_ITS | Encounter Summary ---
Author Organization [facility] Address [address] [address] Care Team Providers Care Managed Care Liaison Name Role Phone Cyndi Sinclair NP Primary Care Provider [phone] Cyndi Sinclair NP Primary Care Provider [phone] Serenity Melton Primary Care Provider + Encounter Details Date Type Department Care Team (Late st Contact Info) Description 09/09/2016 Orders Only [facility] ProviderRadha MD [address] [place] [address] Social History Tobacco Use Types Packs/Day Years Used Date Smoking Tobacco: Never Alcohol Use Standard Drinks/Week Comments Yes 0 (1 standard drink = 0.6 oz pur e alcohol) Comments Unknown Sex and Gender Information Value Date Recorded Sex Assigned at Not on file Legal Sex Female 2:38 AM [employer] Gender Identity Not on file Sexual Orientation Not on file documented as of this encounter Plan of Treatment Not on file documented as of this encounter Procedures Procedure Name Priority Date/Time Associated Diagnosis Comments CARDIOLOGY REPORT 09/09/2016 documented in this encounter Results * CARDIOLOGY REPORT (09/09/2016) Anatomical Region Laterality Modality Other Narrative 09/09/2016 Ordered by an unspecified provider. Historical Provider [facility] Final Result documented in this encounter Visit Diagnoses Not on filedocumented in this encounter Care Teams Managed Care Liaison Relationship Specialty Start Date End Date Cyndi Sinclair NP PCP - General 12/03/16 05/27/22 Cyndi Sinclair NP PCP - General 07/06/16 12/02/16 Serenity Melton PA [address] [place] [id number] PCP - General Nurse Practitioner 05/28/22 documented as of this encounter
--- OUTSIDE RECORDS SUMMARY | 2025-02-19 10:33 | XMS_ITS | Data Portability ---
Author Organization [facility],, [address] [place] [address] Office Address [address] [facility] [address] [place] [phone] Assessment No assessment recorded. Plan of Treatment Reminders Order Date Submit Date Provider Last Modified By Organization Details Last Modified Time Details Appointments None recorded. Lab None recorded. Referral None recorded. Procedures None recorded. Surgeries None recorded. Imaging None recorded. Medication Orders S1 2021 [facility], [address] [facility], [place], [address], 12:19:43 amoxicilli n 875 mg-potassi um clavulanat e 125 mg tablet 2021 022 [email or web address] [facility] #[id number], [address], [place], [id number], 2 16:23:27 amoxicilli n 875 mg-potassi um clavulanat e 125 mg tablet 2021 022 [facility] #[id number], [address], [place], [id number], 2 11:16:23 fluconazol e 150 mg tablet 2021 022 6 [facility] #[id number], [address], [place], [id number], 2 14:58:05 Patient TargetsNo targets recorded. Patient InstructionsNo instructions recorded. Reason for Referral None Reported. Results Created Date Observation Date Name Description Value Unit Range Abnormal Flag Note LastModifiedBy Organization Detail LastModifiedTime Result Notes None recorded. Problems Name Problem SNOMED Code Status Onset Date Resolution Date Notes Provider Name and Address Organization Details Recorded Time Pain of toe of right foot 0874127246194 01 Active 2022 Lori Umaña DPM [address] [facility],[address], [place], [address], [facility], 3 12:06:53 Ingrowing nail 148561233 Active 2022 Lori Umaña DPM [address] [facility],[address], [place], [address], [facility], 3 12:07:09 Onychogryph osis 27816150 Active 2022 Lori Umaña DPM [address] [facility],[address], [place], [address], [facility], 3 12:07:44 Vasovagal syncope 040353758 Active 2022 Lori Umaña DPM [address] [facility],[address], [place], [address], [facility], 3 12:08:08 Acquired hallux limitus of right great toe 5050301933221 100 Active 2020 Lroi Umaña DPM [address] [facility],[address], [place], [address], [facility], 1 12:46:28 Acquired hallux limitus of left great toe 4912954277916 109 Active 2020 Lori Umaña DPM [address] [facility],[address], [place], [address], [facility], 1 12:46:29 Pain in both feet 3357449508725 9102 Active 2020 Lori Umaña, YOVANI [address] [facility],[address], [place], [address], [facility], 1 12:46:31 Pain in left foot 4139114854872 07 Active 2020 Lori Umaña DPM [address] [facility],[address], [place], [address], [facility], 1 19:13:42 Ganglion cyst of left foot 2202488859785 103 Active 2020 Lori Umaña DPM [address] [facility],[address], [place], [address], [facility], 1 19:13:44 Postoperati ve care Active 2021 Lori Umaña DPM [address] [facility],[address], [place], [address], [facility], 2 11:13:54 Postoperati ve visit 333579349 Active 2021 Lori Umaña DPM [address] [facility],[address], [place], [address], [facility], 2 11:36:43 Cellulitis of left foot 7932714781881 9101 Active 2021 oLri Umaña DPM [address] [facility],[address], [place], [address], [facility], 2 12:42:35 Hypertrophi c surgical scar 472231445 Active 2021 Lori Umaña DPM [address] [facility],[address], [place], [address], [facility], 2 14:59:25 Problem Notes None recorded. Procedures Surgical History Date Name Laterality Status Provider Name and Address Organization Details Recorded Time 3 Nail Avulsion completed Lori Umaña DPM [address] [facility],[address], [place], [address], [facility], 09/14/2022 12:06:37 1 Small Joint/Bursa Steroid Injection completed Lori Umaña DPM [address] [facility],[address], [place], [address], [facility], 03/10/2021 17:19:49 EXCISION, GANGLION CYST, FOOT (SURG) completed Lian Marie [facility], 12/10/2021 10:05:35 Imaging Results None recorded. Procedure Notes None recorded. Medical Equipment None Reported. Allergies No known drug allergies Medications Name Sig Start Date Stop Date Status Note LastModified by Organization Details LastModified Time S1 Apply to scarring up to 3 times daily and massage area in cross rao and circular manner for 15 minutes after applicati on. 2021 active Not Available Not Available Not Avai lable tizanidine 4 mg tablet active Not Available Not Available Not Available fluconazole 150 mg tablet TAKE 1 TABLET BY MOUTH EVERY DAY IN THE MORNING FOR 3 DAYS 11/30 completed Not Available Not Available Not Available hydrocodone 5 mg-acetamin ophen 325 mg tablet TAKE 1 TABLET BY MOUTH EVERY 6 TO 8 HOURS FOR 7 DAYS 11/30 completed Not Available Not Available Not Available ondansetron HCl 4 mg tablet active Not Available Not Available Not Available Vitamin C 500 mg chewable tablet active Not Available Not Available Not Available sulfamethox azole 800 mg-trimetho prim 160 mg tablet TAKE 1 TABLET BY MOUTH TWICE DAILY WITH MEALS FOR 10 DAYS active Not Available Not Available No t Available amoxicillin 875 mg tablet active Not Available Not Available Not Available citalopram 20 mg tablet active Not Available Not Available Not Available diazepam 2 mg tablet active Not Available Not Available No t Available cephalexin 500 mg capsule TAKE ONE CAPSULE BY MOUTH EVERY 6 HOURS NEEDED FOR 10 DAYS active Not Available Not Available No t Available indomethaci n 25 mg capsule TAKE 1 CAPSULE BY MOUTH THREE TIMES DAILY WITH FOOD NEEDED FOR MIGRAINE active Not Available Not Available No t Available nystatin-tr iamcinolone 100,000 unit/g-0.1 % topical cream APPLY TO AFFECTED AREA TWICE DAILY DO NOT USE MORE THAN 5 DAYS IN A ROW active Not Available Not Available No t Available gabapentin 300 mg capsule active Not Available Not Available Not Available gabapentin 100 mg capsule active Not Available Not Available Not Available cefprozil 250 mg tablet active Not Available Not Available Not Available methylpredn isolone 4 mg tablets in a dose pack TAKE ALL THE TABLETS BY MOUTH FOR THE FIRST DAY IN THE MORNING WITH FOOD 11/30 completed Not Available Not Available Not Available albuterol sulfate HFA 90 mcg/actuati on aerosol inhaler INHALE 1 TO 2 PUFFS BY MOUTH EVERY 4 HOURS NEEDED FOR COUGH active Not Available Not Available No t Available doxycycline hyclate 100 mg tablet TAKE 1 TABLET BY MOUTH TWICE DAILY FOR 14 DAYS active Not Available Not Available No t Available amoxicillin 875 mg-potassiu m clavulanate 125 mg tablet TAKE 1 TABLET BY MOUTH EVERY 12 HOURS FOR 14 DAYS active Not Available Not Available No t Available Vitamin D3 50 mcg (2,000 unit) capsule active Not Available Not Available Not Available Osphena 60 mg tablet TAKE 1 TABLET BY MOUTH DAILY active Not Available Not Available No t Available naloxone 4 mg/actuatio n nasal spray active Not Available Not Available Not Available Aimovig Autoinjecto r 140 mg/mL subcutaneou s auto-inject or active Not Available Not Available Not Available [facility] 75 mg disintegrat ing tablet active Not Available Not Available N ot Available ID NOW COVID-19 Test Kit TEST DIRECTED 11/30 completed Not Available Not Available Not Available Vitals Date Recorded Body mass index (BMI) Body weight Provider Name and Address Organization Details Last Updated DateTime 09/14/2022 23.6 kg/m2 76679.78 g Lori Umaña, DPM [address] [facility],[address], [place], [address], [place] [facility], 09/14/2022 10:06:21 Date Recorded Body height Heart rate Oxygen saturation Oxygen saturation in Arterial blood by Pulse oximetry Body temperature Systolic blood pressure Diastolic blood pressure Provider Name and Address Organization Details Last Updated DateTime 3 175.26 cm 76 /min 94 % 94 % 97.8 [degF] 116 mm[Hg] 55 mm[Hg] Lynda Dasilva [facility], 3 10:04:22 Date Recorded Body height Provider Name an d Address Organization Details Last Updated DateTime 12/14/2021 175.26 cm Lian Marie [facility], 12/14/2021 11:55:58 Social History Question Answer Notes LastModified by [employer] Details LastModified Time Tobacco Smoking Status Never Smoker Lian Marie [facility], 01/12/2021 15:30:42 What Was The Date Of Your Most Recent Tobacco Screening? 01/12/2021 [email or web address] Information not available 01/12/2021 How Much Tobacco Do You Smoke? No Information not available 01/12/2021 Sex: Unknown Functional Status Question Answer Note LastModified by [employer] ion Details LastModified Time What is your level of alcohol consumption? Moderate [email or web address] Information not available 01/12/2021 Do you or have you ever used smokeless tobacco? Never used smokeless tobacco [email or web address] Information not available 01/12/2021 What is your occupation? RN Information not available 01/12/2021 Do you or have you ever used e-cigarettes or vape? Never used electronic cigarettes [email or web address] Information not available 01/12/2021 Mental Status None recorded. Family History Nothing Reported. Medical History Condition Response Coronary Artery Disease N Gout N Artificial Joints N Thyroid Problems N Lung Disease N Blood Clots N Pacemaker N Anemia N Edema N Back Pain N Deep Vein Thrombosis N Varicose Veins N Diabetes N Bleeding Disorder N Arthritis N Seizures/Epilepsy N AIDS/HIV N Cancer N Stroke N Asthma N Leg or Foot Ulcers N Raynaud's Disease N Peripheral Vascular Disease N Hepatitis N Liver Disease N Heart Disease N Rheumatoid Arthritis N Pulmonary Embolism N Fibromyalgia N Foot Deformity N Hypertension N Osteoporosis N Kidney Disease N Gynecological HistoryNo gynecological history recorded. Obstetrics History GPAL:G 0 P 0 0 0 0 Past Encounters Encounter ID Performer Location Encounter Start Date Encounter Closed Date Diagnosis/Indication Diagnosis SNOMED-CT Code Diagnosis ICD10 Code Diagnosis Note [id number] Lori Umaña, YOVANI [address] [facility] Office [address] [place] [address],[address] [place] [address] 01/12/2021 15:12:19 01/12/2021 16:17:14 Pain in both feet [id number] 9112541 M79.671 M79.672 The conditions , etiologies , options for care, treatment plan, and prognosis were discussed with the patient. Both conservati ve and surgical options for care were reviewed. Conservati vely I recommende d that they wear more supportive shoes with a stiff-sole , a toe box wide enough for their foot, more padding, and overall better fitting shoes. Discussed the benefits of over the counter and/or prescripti on orthotics and explained that orthotics increase shock absorption and that the use of orthotics may possibly delay, or even potentiall y deter, requiring surgery for their condition. Discussed the benefits of rest, stretching , home physical therapy, ice, changes in shoe gear, more supportive shoegear, injections , NSAIDs, orthotics, and foot strapping. A handout demonstrat ing the icing and home physical therapy stretching techniques was given to the patient at this visit. Answered all of patient's questions. Discussed surgical interventi on in detail. I discussed the risks of procedure which include, but are not limited to: infection, recurrence , no improvemen t, worsening of condition, loss of limb, chronic swelling, chronic pain, hardware failure, need for future surgery, or numbness. Recovery time, post op protocols including weightbear ing status, and pain levels were discussed and the patient understand s the recovery time for this procedure and was given an opportunit y to ask questions. They understand that there are no guarantees on the outcome of any medical procedure and acknowledg es that no guarantee has been made with regard to these procedures . All questions were answered to the best of my ability; the patient would like to continue conservati ve therapy at this time. The patient voiced understand ing of the condition, home care, and expected healing, and was happy with this treatment plan. They are to return to the office in 6 - 8 weeks if symptoms do not improve, otherwise on an as needed basis. Acquired h allux limitus of right great toe [id number] 161903 M20.5X1 Acquired h allux limitus of left great toe 7853643049 416408 M20.5X2 [id number] Lori Umaña DPM [address] [facility] Office [address] [facility] [place] [address] 02/23/2021 12:03:34 02/23/2021 12:41:36 Acquired hallux limitus of right great toe 5409633404 340427 M20.5X1 Acquired h allux limitus of left great toe 6722569226 338127 M20.5X2 Pain in both feet 092473 0299 4525514 M79.671 M79.672 Patient's condition, etiologies , options for care, treatment plan, and prognosis were discussed with in detail. Both conservati ve and surgical options for care were reviewed. Rjati yoseph I reviewed possible therapeuti c options including home physical therapy, oral and injectable medication s, therapist managed therapy, and changes in shoe gear. Discussed proper shoe gear and choices in detail and a handout demonstrat ing the icing and home physical therapy stretching techniques was given to the patient at this visit. Answered all of patient's questions. Discussed the benefits of prescripti on orthotics with the patient and explained that functional orthotics increase shock absorption and may prolong, or even potentiall y deter, the potential of requiring surgery for their condition. I recommende d more supportive shoes, shoes with more padding, shoes with a deeper toe box, and better fitting shoes. Handout given for over the counter insoles and shoe brand informatio n. The patient voiced understand ing of the condition, home care, expected healing, and was happy with this treatment plan and is to return to the office in 6 weeks if symptoms do not improve, otherwise on an as needed basis. Capsulitis of metatarsophalangeal joint of left foot [id number] 0034813 M77.52 I discussed treatment of their pain with an injection today. I explained that a steroid and local anesthetic injection usually decreases pain and inflammati on. I explained the possible complicati ons including but not limited to infection, discolorat ion of skin, tissue atrophy, and a temporary increase in discomfort . She chose to have an injection. [id number] Lori Umaña DPM [address] [facility] Office [address] [facility] [address] [place] [address] 04/06/2021 12:28:32 04/06/2021 13:00:11 Acquired hallux limitus of right great toe 7306238716 830934 M20.5X1 Acquired h allux limitus of left great toe 6693527405 407907 M20.5X2 Pain in both feet 533810 1852 8390399 M79.671 M79.672 Patient's condition, etiologies , options for care, treatment plan, and prognosis were discussed with in detail. Both conservati ve and surgical options for care were reviewed. Melissa hameed I reviewed possible therapeuti c options including home physical therapy, oral and injectable medication s, therapist managed therapy, and changes in shoe gear. Discussed proper shoe gear and choices in detail and a handout demonstrat ing the icing and home physical therapy stretching techniques was given to the patient at this visit. Answered all of patient's questions. Discussed the benefits of prescripti on orthotics with the patient and explained that functional orthotics increase shock absorption and may prolong, or even potentiall y deter, the potential of requiring surgery for their condition. I recommende d more supportive shoes, shoes with more padding, shoes with a deeper toe box, and better fitting shoes. Handout given for over the counter insoles and shoe brand informatio n. The patient voiced understand ing of the condition, home care, expected healing, and was happy with this treatment plan and is to return to the office in 6 weeks if symptoms do not improve, otherwise on an as needed basis. [id number] Lori Umaña DPM [address] [facility] Office [address] [facility] [address] [place] [address] 05/27/2021 15:28:08 05/27/2021 15:55:01 Pain in left foot [id number] 84028 M79.672 The conditions , etiologies , options for care, treatment plan, and prognosis were discussed with the patient. Both conservati ve and surgical options for care were reviewed. Melissa hameed I recommende d that they wear more supportive shoes with a stiff-sole , a toe box wide enough for their foot, more padding, and overall better fitting shoes. Discussed the benefits of over the counter and/or prescripti on orthotics and explained that orthotics increase shock absorption and that the use of orthotics may possibly delay, or even potentiall y deter, requiring surgery for their condition. Discussed the benefits of rest, stretching , home physical therapy, ice, changes in shoe gear, more supportive shoegear, injections , NSAIDs, orthotics, and foot strapping. A handout demonstrat ing the icing and home physical therapy stretching techniques was given to the patient at this visit. Answered all of patient's questions. Discussed surgical interventi on in detail. I discussed the risks of procedure which include, but are not limited to: infection, recurrence , no improvemen t, worsening of condition, loss of limb, chronic swelling, chronic pain, hardware failure, need for future surgery, or numbness. Recovery time, post op protocols including weightbear ing status, and pain levels were discussed and the patient understand s the recovery time for this procedure and was given an opportunit y to ask questions. They understand that there are no guarantees on the outcome of any medical procedure and acknowledg es that no guarantee has been made with regard to these procedures . All questions were answered to the best of my ability; the patient would like to continue conservati ve therapy at this time. The patient voiced understand ing of the condition, home care, and expected healing, and was happy with this treatment plan. Ganglion c yst of left foot [id number] 147729 M67.472 I discussed the various stages of treatment for a ganglion cyst in the office today. Initial treatment consists of observatio n, using anti-infla mmatory medication s, supporting the architectu re of the foot, or compressio n wraps.Cyst s can be aspirated and injected with cortisone and this will sometimes resolve the problem. Surgery can also be done, if needed, to remove the cyst; however there is still a 10-20% recurrence rate even with surgical removal. These cysts originate from the joint capsule, indicating a synovitis problem deeper within the joint is the primary cause, which accounts for the recurrence often seen after surgery. She is to return for injection or to discuss surgery. [id number] Lori Umaña DPM [address] [facility] Office [address] [facility] [place] [address] 06/04/2021 14:50:57 06/04/2021 15:32:16 Acquired hallux limitus of left great toe [id number] 161714 M20.5X2 Pain in both feet 828653 6075 3290558 M79.671 M79.672 Patient's condition, etiologies , options for care, treatment plan, and prognosis were discussed with in detail. Both conservati ve and surgical options for care were reviewed. Conservati vely I reviewed possible therapeuti c options including home physical therapy, oral and injectable medication s, therapist managed therapy, and changes in shoe gear. Discussed proper shoe gear and choices in detail and a handout demonstrat ing the icing and home physical therapy stretching techniques was given to the patient at this visit. Answered all of patient's questions. Discussed the benefits of prescripti on orthotics with the patient and explained that functional orthotics increase shock absorption and may prolong, or even potentiall y deter, the potential of requiring surgery for their condition. I recommende d more supportive shoes, shoes with more padding, shoes with a deeper toe box, and better fitting shoes. Handout given for over the counter insoles and shoe brand informatio n. The patient voiced understand ing of the condition, home care, expected healing, and was happy with this treatment plan and is to return to the office in 6 weeks if symptoms do not improve, otherwise on an as needed basis. Ganglion c yst of left foot [id number] 455140 M67.472 [id number] Lori Umaña DPM [address] [facility] Office [address] [facility] [place] [address] 09/10/2021 10:55:46 09/10/2021 11:15:02 Ganglion cyst of left foot 8482938977 435344 M67.472 I discussed the various stages of treatment for a ganglion cyst in the office today. Initial treatment consists of observatio n, using anti-infla mmatory medication s, supporting the architectu re of the foot, or compressio n wraps. Cysts can be aspirated and injected with cortisone and this will sometimes resolve the problem. Surgery can also be done, if needed, to remove the cyst; however there is still a 10-20% recurrence rate even with surgical removal. These cysts originate from the joint capsule, indicating a synovitis problem deeper within the joint is the primary cause, which accounts for the recurrence often seen after surgery. Discussed surgery in detail today. Discussed the risks of procedure which include, but are not limited to: infection, recurrence , no improvemen t, worsening of condition, loss of limb, chronic swelling, chronic pain, need for future surgery, or numbness. Recovery time, post op protocols including weightbear ing status, and pain levels were discussed with the patient. They understand the recovery time for this procedure and was given an opportunit y to ask questions and understand s that there are no guarantees on the outcome of any medical procedure and acknowledg es that no guarantee has been made with regard to these procedures . All questions were answered to the best of my ability; they patient would like to have a surgical correction performed [facility] Surgical packet was reviewed with patient and scanned into the chart, the original was given to the patient. Pain in left foot 086671 4616 37809 M79.672 Patient's condition, etiologies , options for care, treatment plan, and prognosis were discussed with in detail. Both conservati ve and surgical options for care were reviewed. Conservati yoseph I reviewed possible therapeuti c options including home physical therapy, oral and injectable medication s, therapist managed therapy, and changes in shoe gear. Discussed proper shoe gear and choices in detail and a handout demonstrat ing the icing and home physical therapy stretching techniques was given to the patient at this visit. Answered all of patient's questions. The patient voiced understand ing of the condition, home care, expected healing, and was happy with this treatment plan and is to return to the office after surgery. [id number] Lori Umaña DPM [address] [facility] Office [address] [place] [address],[facility] [address] [place] [address] 10/06/2021 12:04:42 10/06/2021 12:19:23 Postoperative visit [id number] Dressings were removed from the left lower extremity. Sutures left intact. Cleansed the patient's foot and dry sterile dressing was reapplied. They may begin to shower at this time but were instructed not to take a bath or soak the foot. They are to remove the dressing before the shower and then redress the area with a clean dressing after bathing. Post suture handout with instructio ns given. Post-opera tive course and post-opera tive instructio ns for home care were reviewed in detail. They are to be weight bearing as tolerated in a tennis shoe. The patient voiced understand ing of the condition, home care, expected healing, and was happy with this treatment plan and is to return to the office in 7-10 days or sooner if problems or concerns arise. 5851 Lori Umaña DPM [address] [facility] Office [address] [place] [address] [place] [id number] 10/15/2021 10:36:23 10/15/2021 11:07:36 Ganglion cyst of left foot [id number] M67.472 Postoperative care [id number] Z48.89 Shoe and sock were removed from the left lower extremity. Sutures were removed. Cleansed the patient's foot and sock and shoe was reapplied. They may continue to shower at this time but were reminded not to take a bath or soak the foot until the incision is fully healed. Post-opera tive course and post-opera tive instructio ns for home care were reviewed in detail. They are to be weight bearing as tolerated in all shoes as tolerated. The patient voiced understand ing of the condition, home care, expected healing, and was happy with this treatment plan and is to return to the office in 2 months or sooner if problems or concerns arise. 6114 Lori Umaña DPM [address] [facility] Office [address] [place] [address] [address] [place] [address] 11/03/2021 11:06:02 11/03/2021 11:10:19 Ganglion cyst of left foot [id number] M67.472 Shoe and sock were removed from the left lower extremity. Sutures have been removed. Cleansed the patient's foot and sock and shoe was reapplied. They may shower, take a bath, or soak the foot without restrictio n. Post-opera tive course and post-opera tive instructio ns for home care were reviewed in detail. They are to be weight bearing as tolerated in tennis shoe/flat shoe. The patient voiced understand ing of the condition, home care, expected healing, and was happy with this treatment plan and is to return to the office in 3 weeks or sooner if problems or concerns arise. Postoperative care [id number] 9007 Z48.89 Possible abscess in area of previous infection, inclusion cyst and surgery. Will start Abx, she is to monitor changes and signs of worsening infection, she is to call the office immediatel y if symptoms worsen. 6376 Lori Umaña DPM [address] [facility] Office [address] [place] [phone] 11/30/2021 14:29:00 11/30/2021 15:11:44 Acquired hallux limitus of right great toe [id number] M20.5X1 Ganglion c yst of left foot [id number] 388847 M67.472 Hypertroph ic surgical scar [id number] L91.0 Discussed scarring and care in detail and that at this time re-excisio n or invasive care will more than likely lead to more scarring. At this time continue scar massage, gel sheeting, and normal activities . Postoperative care 71129 9007 Z48.89 Shoe and sock were removed from the left lower extremity. Sutures have been removed. Cleansed the patient's foot and sock and shoe was reapplied. They may shower, take a bath, or soak the foot without restrictio n. Post-opera tive course and post-opera tive instructio ns for home care were reviewed in detail. They are to be weight bearing as tolerated in tennis shoe/flat shoe. The patient voiced understand ing of the condition, home care, expected healing, and was happy with this treatment plan and is to return to the office in 6 weeks or sooner if problems or concerns arise. 6608 Lori Umaña DPM [address] [facility] Office [address] [place] [address] [place] [phone] 12/14/2021 11:52:17 12/14/2021 12:15:17 Ganglion cyst of left foot [id number] M67.472 Reviewed scarring in detail and that we do not want to cut on the scar tissue at this time as I believe that I will lead to more scarring and just resetting the timeline on healing and scarring of the foot. Discussed ultrasound and iontophore sis, will start Rx topical medication and massage at home. Informatio n given for scar silicone padding as well. Postoperative visit [phone] Z81 Dressings were removed from the left lower extremity. Sutures left intact. Cleansed the patient's foot and dry sterile dressing was reapplied. They may begin to shower at this time but were instructed not to take a bath or soak the foot. They are to remove the dressing before the shower and then redress the area with a clean dressing after bathing. Post suture handout with instructio ns given. Post-opera tive course and post-opera tive instructio ns for home care were reviewed in detail. They are to be weight bearing as tolerated in a tennis shoe. The patient voiced understand ing of the condition, home care, expected healing, and was happy with this treatment plan and is to return to the office in 7-10 days or sooner if problems or concerns arise. [address]69[address] Lori Umaña, YOVANI [address] [place] [address] 09/14/2022 09:53:17 09/14/2022 10:41:27 Pain of toe of right foot [id number] 66773 M79.674 The ingrown toenail its etiology, options for care, treatment plan, and prognosis were discussed with the patient. In detail, I explained conservati ve and surgical options of care. The patient elected to have the ingrown toenail surgically corrected today and understand s the risks of procedure including, but not limited to recurrence of the ingrown toenail, infection, worsening of condition, loss of entire toenail, loss of digit. Answered all of patient's questions. Home care directions were reviewed with the patient and a handout for post procedure care was dispensed. The patient voiced understand ing of the condition, home care, and expected healing, and was happy with this treatment plan and is to return to the office in 6 weeks or sooner as needed. 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 She was placed in mild Trendelenb urg, cool cloths placed on her head and chest, and revived with smelling salts. After she was revived she was given juice and crackers. Pulse was 78 and blood pressure was 124/64. Patient stated she did not eat much for breakfast, felt much better and was AAO x 4. Health Concerns Section Related Observation LastModified by Organization Detai ls LastModified Time None Recorded Concern Status LastModified by Organization Details LastModified Time None Recorded Advance Directives Directive None Recorded Payers Insurance Date Sequence Insurance Name Policy Number Policy Gooden Covered Member ID Gooden Member ID Guarantor Name 09/11/2022 1 ALISIA-JOHNY ([facility]) [id number] Abram Le [id number] Ayesha Le Notes Date Note Type Note Provider Name and Address Organization Details Recorded Time 10/15/2021 text/html Surgery: Excisio n cyst of the left foot Date of Surgery: 09/30/2021 Pain level: none Pain quality: none Pain control: OTC medication ice, elevation, rest Weightbearing: as tolerated in a tennis shoe They deny nausea, vomiting, chills, fever and calf pain. Lori Umaña DPM [address] [facility],[address] [facility], [place], [phone], [facility], 10/15/2021 11:14:08 11/03/2021 text/html Surgery: Excisio n cyst of the left footDate of Surgery: 09/30/2021ain level: nonePain quality: nonePain control: OTC medication ice, elevation, restWeightbearing: as tolerated in a tennis shoeIncrease in swelling over the area, here for early check. They deny nausea, vomiting, chills, fever and calf pain. Lori Umaña DPM [address] [facility],[address] [place] [address], [phone], [facility], 11/03/2021 11:28:11 11/30/2021 text/html Surgery: Excisio n cyst of the left footDate of Surgery: 09/30/2021ain level: nonePain quality: nonePain control: OTC medication ice, elevation, restWeightbearing: as tolerated in a tennis shoeSome minimal continued swelling to the surgical area, no drainage. They deny nausea, vomiting, chills, fever and calf pain. Lori Umaña DPM [address] [facility] [address] [place] [address], [phone], [facility], 01/12/2022 15:00:00 12/14/2021 text/html Surgery: Excisio n cyst of the left footDate of Surgery: 2Pain level: nonePain quality: nonePain control: OTC medication ice, elevation, restWeightbearing: as tolerated in a tennis shoeSome minimal continued swelling to the surgical area, no drainage. Some scar thickening. They deny nausea, vomiting, chills, fever and calf pain. Lori Umaña DPM [address] [facility] [address], [place], [phone], [facility], 01/26/2022 10:34:09 09/14/2022 text/html Ayesha presents to the office today for an painful loose nail to the right hallux which has not responded to self treatment including soaks, trimming at home, and local care. The toenail has been painful, red, and ingrown for several months. The pain is throbbing, aching and stabbing in nature and is worsened by shoe wear and direct pressure. They have had a similar condition previously treated. Outside reports reviewed: Office notes and historical medical records Lori Umaña DPM [address] [facility],[address] [place], [place], [phone], [facility], 09/14/2022 12:08:42 OBGyn Episode No OBEpisode recorded.
== END 2025-02-19 09:35 | disposition home or self-care (01) ==
PROVIDERS: Visit Provider Nurse Practitioner Obstetrics & Gynecology
DX: Z12.31 Encounter for screening mammogram for malignant neoplasm of breast (principal)
CPT/HCPCS: 77063; 77067